=== PATIENT | male | born 1990 | race Caucasian/White ===

== ENCOUNTER → 2018-11-05 | Outpatient (CLI) | payer OTHER ==
[~2018-11-05] MED LIST: AMIT-255 PO; METH1TAB40; PROHANCE 279.3MG/ML 15ML VIAL (A9576) As Ordered ONE
--- NOTE | 2018-11-05 19:04 | REPVR ---
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 3D rendering: MIP reconstructed images were created and reviewed. Contrast material: PROHANCE; Contrast volume: 14 ml; Contrast route: 22G ANGIO; COMPARISON: No relevant prior studies available. FINDINGS: Brain: Normal. No acute infarct. No hemorrhage. No significant white matter disease. No edema. No CP angle mass. Normal appearance of the seventh and eighth cranial nerves. Ventricles: Normal. No ventriculomegaly. Bones/joints: Unremarkable. Soft tissues: Unremarkable. Sinuses: Normal as visualized. No acute sinusitis. Mastoid air cells: Normal as visualized. No mastoid effusion. Orbits: Unremarkable. IMPRESSION: No acute findings. Electronically signed by: Durga Rain On 11/05/2018 19:04:02 PM
== END ==
LOC: M RAD 16:26
PROVIDERS: ATTEND Otolaryngology
DX: H93.12 Tinnitus, left ear (principal)